=== PATIENT | female | born 1985 | race Caucasian/White ===

== ENCOUNTER 2020-09-04 22:18 | Emergency (ER) | payer OTHER ==
[~2020-09-04] VITALS: Ht 157.5 cm; Wt 79.5 kg
[2020-09-04 22:40] VITALS: BP 152/95
[2020-09-04] MEDS ORDERED: CEPH250T PO (23:35)
[2020-09-04] MEDS ORDERED: FLUC150T PO (23:40)
== END 2020-09-04 23:45 | disposition home or self-care (01) ==
LOC: ER 22:19
DX: S90.465A Insect bite (nonvenomous), left lesser toe(s), initial encounter (principal); L03.032 Cellulitis of left toe; Z79.2 Long term (current) use of antibiotics; Z79.899 Other long term (current) drug therapy; W57.XXXA Bitten or stung by nonvenomous insect and other nonvenomous arthropods, initial encounter; Y93.89 Activity, other specified; Y92.89 Other specified places as the place of occurrence of the external cause; Y99.8 Other external cause status
CPT/HCPCS: 99283